=== PATIENT | male | born 1950 | race Caucasian/White ===

== ENCOUNTER 2021-08-05 09:08 | Day surgery (SDC) | payer MEDICARE, OTHER ==
[~2021-08-05] VITALS: Ht 177.8 cm; Wt 91.9 kg
[~2021-08-05 09:08] MED LIST: AMLO5 PO; ASPI81CH PO; SIMV10 PO
--- NOTE | 2021-08-05 12:08 | NUR ---
08/05/21 1208 Rosamaria Figueroa S ATTEMPT X1 IN RIGHT HAND WITHOUT SUCCESS. SITE WITH ABOUT QUARTER SIZE HEMATOMA, 2X2 APPLIED WITH PRESSURE HELD. SITE WRAPPED WITH COBAN.
== END 2021-08-05 11:45 | disposition home or self-care (01) ==
LOC: ORSCSDS 09:08
PROVIDERS: Internal Medicine Gastroenterology
PROC: 0DBK8ZX Excision of Ascending Colon, Via Natural or Artificial Opening Endoscopic, Diagnostic (ICD-10-PCS; principal; 2021-08-05 10:30)
PROC: 0DBM8ZX Excision of Descending Colon, Via Natural or Artificial Opening Endoscopic, Diagnostic (ICD-10-PCS; principal; 2021-08-05 10:30)
PROC: 0DBL8ZX Excision of Transverse Colon, Via Natural or Artificial Opening Endoscopic, Diagnostic (ICD-10-PCS; principal; 2021-08-05 10:30)
DX: Z12.11 Encounter for screening for malignant neoplasm of colon (principal); Z86.010 Personal history of colon polyps; K57.30 Diverticulosis of large intestine without perforation or abscess without bleeding; D12.3 Benign neoplasm of transverse colon; D12.2 Benign neoplasm of ascending colon; D12.4 Benign neoplasm of descending colon; E66.9 Obesity, unspecified; Z68.30 Body mass index [BMI] 30.0-30.9, adult; Z79.899 Other long term (current) drug therapy
CPT/HCPCS: 88305; J2704; J7120